=== PATIENT | male | born 1970 | race Caucasian/White ===

== ENCOUNTER → 2021-08-08 | Outpatient (CLI) | payer OTHER ==
--- NOTE | 2021-08-09 21:40 | CTL ---
EXAMINATION TYPE: CT Low Dose Lung DATE OF EXAM ORDERED: 08/08/2021 HISTORY: Personal history of nicotine dependence. Lung cancer screening CT DLP: [address] CTDI: 2.30 mGy Automated exposure control for dose reduction was used. SCREENING VISIT: Baseline COMPARISON: None available TECHNIQUE: Low dose computed tomography scan was performed through the chest at 1 mm thick sections a nd reconstructed images in multiple planes at 1 mm and [address] DIAGNOSTIC QUALITY: Satisfactory FINDINGS: LUNG NODULES: Right lung solid [address] image 227. Right lung base anterior solid [address] image 283. Right lung base 7 mm solid nodule in CT image 271. Right lung solid elongated 10 mm parasagittal perifissural nodule in CT image 224. Left lower lobe solid pleural-based [address] image 233. Left lower lobe solid pleural-based [address] image 240. LUNGS: COPD: Severity: Moderate to markedly Fibrosis: Severity: Minimal Lymph nodes: No pathologically enlarged lymph nodes. Other findings: None RIGHT PLEURAL SPACE: Effusion: None Calcification: None Thickening: None Pneumothorax: None LEFT PLEURAL SPACE: Effusion: None Calcification: None Thickening: None Pneumothorax: None HEART: Heart Size: Normal Coronary Calcification: Severe Pericardial Effusion: None OTHER FINDINGS: Upper abdomen: 11 mm left hepatic lobe hypodensity, likely representing a hepatic cyst. Bony thorax: No gross aggressive bone lesion. Supraclavicular region: None Other: None IMPRESSION: Scattered pulmonary nodules measuring up to 7 mm as detailed above. COPD changes. Other i ncidental findings as described above. CT LUNG RAD AND CT CHEST RECOMMENDATION: Lung-Rad 3 Probably Benign: 6 month follow-up LDCT. S Modifier (other clinically significant findings): As above.
== END | disposition home or self-care (01) ==
LOC: RADCTMAIN 16:37
PROVIDERS: ATTEND Family Medicine
DX: Z12.2 Encounter for screening for malignant neoplasm of respiratory organs (principal); Z87.891 Personal history of nicotine dependence; R91.8 Other nonspecific abnormal finding of lung field
CPT/HCPCS: 71271

== ENCOUNTER → 2021-09-25 | Outpatient (CLI) | payer OTHER ==
--- NOTE | 2021-09-26 07:51 | CT ---
EXAMINATION TYPE: CT abdomen w con DATE OF EXAM: 09/25/2021 COMPARISON: None. HISTORY: Chronic Cholecystitis. Pt states he has Hx of gallstones CT DLP: 337.4 mGycm Automated exposure control for dose reduction was used. TECHNIQUE: Helical acquisition of images was performed from the lung bases through the top of iliac crest to include entire abdomen. CONTRAST: Performed with Oral Contrast and with IV Contrast, patient injected with 70 ML mL of Isovue 300. FINDINGS: LUNG BASES: No significant abnormality is appreciated. LIVER/GB: Liver normal in size. There is subcentimeter low dense rounded lesion left hepatic lobe axi al image 22 favored benign thin-walled cyst. Gallbladder contracted. No surrounding fluid or fat stra nding. No abnormal biliary dilatation. PANCREAS: No significant abnormality is seen. SPLEEN: No significant abnormality is seen. ADRENALS: No significant abnormality is seen. KIDNEYS: Symmetric cortical medullary uptake and excretion without hydronephrosis seen bilaterally. T here are 2 subcentimeter rounded low dense lesions in the left kidney axial image 22 and 32 thought t o reflect benign thin-walled cysts. BOWEL: Oral contrast does not reach colonic level making evaluation of distal bowel slightly subopti mal. Some small bowel loops left abdomen are not contrast opacified. LYMPH NODES: No significant abnormality is seen. OSSEOUS STRUCTURES: Mild facet arthropathy lower lumbar spine. FREE AIR: No free air is visualized. OTHER: None IMPRESSION: Contracted gallbladder. No CT dense intraluminal gallstones. No CT evidence for acute cho lecystitis. No suspicious biliary dilatation.
== END | disposition home or self-care (01) ==
LOC: RADCTMAIN 16:32
PROVIDERS: ATTEND Surgery
DX: K81.1 Chronic cholecystitis (principal); Z87.19 Personal history of other diseases of the digestive system
CPT/HCPCS: 74160; Q9967 ×2

== ENCOUNTER 2021-11-26 10:16 | Day surgery (SDC) | payer OTHER ==
[~2021-11-26 10:16] MED LIST: LACTATED RINGERS 1,000 ML IV SCH
[2021-11-26 10:46] VITALS: TEMP 97.6
[2021-11-26] MEDS ORDERED: ONDANSETRON 4 MG/2 ML VIAL ONE (10:52)
[2021-11-26] MEDS ORDERED: ONDANSETRON 4 MG/2 ML VIAL IVP ONE (10:53)
[2021-11-26] MEDS ORDERED: PROPOFOL 10 MG/ML 20 ML VIAL IV ONE (11:14)
[2021-11-26] MEDS ORDERED: LIDOCAINE 2% INJ 20 MG/ML (2 ML VIAL) ONE (11:14)
--- NOTE | 2021-11-26 11:27 | P.GSHP ---
History of Present Illness H&P Date: 11/26/21 Chief Complaint: Nausea vomiting, screening 51-year-old male here for upper and lower endoscopy. Patient was seen in the office in September. Patient with complaints of nausea vomiting and some weight loss. No abdominal pain. Recent findings of gallstones. He is due for co lonoscopy as well. No rectal bleeding or melena. No change in bowel habits. Past Medical History Past Medical History: COPD, GERD/Reflux, Hyperlipidemia, Hypertension, Myocardial Infarction (VT), Musculoskeletal Disorder Additional Past Medical History / Comment(s): DDD, quit taking BP meds on own, frequent nausea for about a year, occasional vomiting Last Myocardial Infarction Date:: 2015 History of Any Multi-Drug Resistant Organisms: None Reported Past Surgical History: Heart Catheterization With Stent Additional Past Surgical History / Comment(s): multiple cleft palate & lip repair Past Anesthesia/Blood Transfusion Reactions: Motion Sickness, Postoperative Nausea & Vomiting (PONV) Date of Last Stent Placement:: 2015 Smoking Status: Current every day smoker - Past Family History Father Family Medical History: Diabetes Mellitus, Hypertension Mother Family Medical History: Myocardial Infarction (VT) Medications and Allergies Home Medications Medication Instructions Recorded Confirmed Type clonazePAM [KlonoPIN] 0.5 mg PO DIRECTED PRN 12/01/13 11/26/21 History Nicotine 21Mg/24Hr Patch [Habitrol] 1 patch TRANSDERM DAILY #30 patch 12/03/13 11/26/21 Rx Nitroglycerin Sl Tabs [Nitrostat] 0.4 mg SUBLINGUAL Q5M PRN #25 tab 12/03/13 11/26/21 Rx Ondansetron [Zofran] 4 mg PO Q8HR PRN 11/22/21 11/26/21 History Pantoprazole [Protonix] 40 mg PO DAILY 11/22/21 11/26/21 History Allergies Allergy/AdvReac Type Severity Reaction Status Date / Time codeine Allergy Nausea & Verified 11/26/21 10:30 Vomiting & Diarrhea Surgical - Exam Vital Signs Temp Pulse Resp BP Pulse Ox 97.6 F 90 18 154/86 99 11/26/21 10:41 11/26/21 10:41 11/26/21 10:41 11/26/21 10:41 11/26/21 10:41 Physical exam: General: Well-developed, well-nourished HEENT: Normocephalic, sclerae nonicteric Abdomen: Nontender, nondistended Extremities: No edema Neuro: Alert and oriented Assessment and Plan (1) Colon cancer screening Narrative/Plan: Will proceed with upper and lower endoscopy Current Visit: Yes Status: Acute Code(s): Z12.11 - ENCOUNTER FOR SCREENING FOR MALIGNANT NEOPLASM OF COLON SNOMED Code(s): 470918057
--- NOTE | 2021-11-26 11:54 | P.PCN ---
Date of Procedure: 11/26/21 Procedure(s) Performed: PREOPERATIVE DIAGNOSIS: Intractable nausea vomiting, weight loss, screening POSTOPERATIVE DIAGNOSIS: Mild gastritis, small hiatal hernia, colon polyps PROCEDURE: 1. EGD with biopsy 2. Colonoscopy with snare polypectomy ANESTHESIA: MAC SURGEON: Kne Darby M.D. SPECIMENS: Colon polyps ENDOSCOPIC PROCEDURE: The patient was on the endoscopy table in the left decubitus position. The Olympus gastroscope was inserted into the oropharynx and passed under direct visualization to the region of the third portion of the duodenum. From that point the scope was slowly withdrawn inspecting all surfaces carefully. There were no neoplastic inflammatory or polypoid lesions throughout the duodenum. The pylorus was widely patent. The stomach was carefully inspected. There was mild gastritis present. A biopsy of the antrum took place to rule out H. pylori. Retroflexion revealed a small hiatal hernia. The esophagus was then carefully examined. There were no neoplastic inflammatory or polypoid lesions throughout the visualized esophagus. The patient was kept on the endoscopy table in the left decubitus position. The Olympus colonoscope was inserted into the anus and passed under direct visualization to the base of the cecum. The appendiceal orifice was visualized. From that point the scope was slowly withdrawn inspecting all surfaces carefully. There were no neoplastic inflammatory or polypoid lesions throughout the cecum or ascending colon. At the hepatic flexure a small polyp was seen and removed using the snare with cautery technique. The transverse colon formed additional polyps were seen and removed in a similar fashion. In the sigmoid colon for polyps were seen and removed in a similar fashion. The rectum appeared normal. No diverticulosis was seen. Digital rectal examination was normal. The patient was taken to the recovery room in stable condition per anesthesia guidelines. RECOMMENDATIONS: Await biopsy results. Repeat colonoscopy in 3-5 years.
[2021-11-26 12:31] VITALS: PULSE 78; RESP 16
[2021-11-26 12:37] VITALS: BP 135/78
== END 2021-11-26 12:42 | disposition home or self-care (01) ==
LOC: ORWHC2ENDO 10:16
PROVIDERS: ATTEND Surgery
DX: Z12.11 Encounter for screening for malignant neoplasm of colon (principal); D12.3 Benign neoplasm of transverse colon; D12.5 Benign neoplasm of sigmoid colon; K29.50 Unspecified chronic gastritis without bleeding; K21.9 Gastro-esophageal reflux disease without esophagitis; K44.9 Diaphragmatic hernia without obstruction or gangrene; K31.9 Disease of stomach and duodenum, unspecified; J44.9 Chronic obstructive pulmonary disease, unspecified; I10 Essential (primary) hypertension; E78.5 Hyperlipidemia, unspecified; I25.10 Atherosclerotic heart disease of native coronary artery without angina pectoris; F17.210 Nicotine dependence, cigarettes, uncomplicated; I25.2 Old myocardial infarction; Z87.39 Personal history of other diseases of the musculoskeletal system and connective tissue; T75.3XXA Motion sickness, initial encounter; Z88.5 Allergy status to narcotic agent; Z83.3 Family history of diabetes mellitus; Z82.49 Family history of ischemic heart disease and other diseases of the circulatory system; Z79.899 Other long term (current) drug therapy
CPT/HCPCS: 88305; 88342; 45385; 43239; J2405; J2704; J2001

== ENCOUNTER → 2022-03-05 | Outpatient (CLI) | payer OTHER ==
--- NOTE | 2022-03-05 19:16 | CT ---
EXAMINATION TYPE: CT chest wo con CT DLP: 225.6 mGycm, Automated exposure control for dose reduction was used. DATE OF EXAM: 03/05/2022 4:42 PM COMPARISON: CT 08/08/2021, abdomen 09/25/2021 CLINICAL INDICATION:Male, 52 years old with history of R91.8 abn finding lung field;, abdominal findi ng on lung field found on prior scan. TECHNIQUE: Multiple axial images were obtained through the chest. Sagittal and coronal reformats were created for review. Contrast used: none. Oral contrast used: none. FINDINGS: LUNGS/ PLEURA: Mild centrilobular emphysema changes throughout the lungs. No focal consolidation, pne umothorax or pleural effusion. * Stable right middle lobe 5 mm pulmonary nodules series 4 image 43, * Right middle lobe more medial pulmonary nodule is not definitively visualized which may be partial ly due to some atelectasis at the cardiophrenic angle. * The right lower lobe medial pulmonary nodule is stable to mildly decreased in size and has a flat appearance on sagittal imaging measuring 2 x 5 mm. * Stable left lower lobe 4 mm pulmonary nodule series 4 image 43. No new or enlarging pulmonary nodules. AIRWAY: Patent and unremarkable. HEART: Size within normal limits. Moderate to severe coronary artery calcifications. MEDIASTINUM: No gross evidence of adenopathy. VASCULATURE: No aortic aneurysm. Mild atherosclerosis of the arterial vasculature. MUSCULOSKELETAL: No acute osseous abnormalities SOFT TISSUES/LYMPH NODES: Unremarkable. LOWER NECK: No significant findings. UPPER ABDOMEN: No significant findings. IMPRESSION: 1. Stable pulmonary nodules no new or enlarging pulmonary nodules. Consider follow-up exam in one ye ar to ensure stability. 2. Moderate to severe coronary atherosclerosis.
== END | disposition home or self-care (01) ==
LOC: RADCTMAIN 16:25
PROVIDERS: ATTEND Family Medicine
DX: I25.10 Atherosclerotic heart disease of native coronary artery without angina pectoris (principal); R91.8 Other nonspecific abnormal finding of lung field
CPT/HCPCS: 71250